=== PATIENT | male | born 1990 ===

== ENCOUNTER 2023-03-12 19:40 | Outpatient (REF) | payer BC, SELFPAY ==
[2023-03-12 16:36] LABS: Calculated LDL 122 mg/dL (<100); Cholesterol 199 mg/dL (<200); HDL Cholesterol 66 mg/dL (40-60); Triglyceride 56 mg/dL (<150)
== END 2023-03-12 19:41 | disposition home or self-care (01) ==
LOC: NCHCN 19:40
PROVIDERS: Visit Provider Family Medicine
DX: E78.5 Hyperlipidemia, unspecified (principal)
CPT/HCPCS: 80061